=== PATIENT | male | born 1965 | race Caucasian/White ===

== ENCOUNTER → 2019-07-20 14:03 | Outpatient (CLI) | payer MEDICAID ==
[2019-07-20 14:42] LABS: BASOPHILS 0.5 % (0-2); HEMATOCRIT 41.3 % (42.0-54.0); HEMOGLOBIN 14.4 g/dL (13.5-17.5); IMMATURE GRANULOCYTES 0.3 % (0-5); LYMPHOCYTES 29.3 % (15-50); MCH 34.2 pg (26.0-34.0); MCHC 34.9 g/dL (31.0-37.0); MCV 98.1 fL (80.0-100.0); MEAN PLATELET VOLUME 9.4 fL (7.4-10.4); MONOCYTES 9.5 % (2-11); NEUTROPHILS 56.4 % (40-80); PLATELET COUNT 85 10x3/uL (130-400); RBC 4.21 10x6/uL (4.20-6.10); RDW 13.2 % (11.5-14.5)
== END | disposition home or self-care (01) ==
LOC: D.RAD 14:03
PROVIDERS: ATTEND Nurse Practitioner
DX: R05 Cough (principal)